=== PATIENT | female | born 1960 | race Caucasian/White ===

== ENCOUNTER 2023-10-02 11:18 | Emergency (ER) | payer BC, SELFPAY ==
[2023-10-02] VITALS (26 sets, daily range): BP systolic 125–175; BP diastolic 63–85; PULSE 76–91; RESP 11–23; TEMP 36.5–37; O2SAT 92–100; BMI 23.8
[2023-10-02 11:34] LABS: Glucometer 124 mg/dL (74-106)
--- NOTE | 2023-10-02 11:35 | ECG_ITS ---
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
--- NOTE | 2023-10-02 11:35 | CT_ITS ---
The [address] [address] Patient Name: CESIA OJEDA MRN: [id number] date: 1960 Sex: F Assigned Patient Location: ER Current Patient Location: ER Accession/Order Number: [id number] Exam Date: 10/02/2023 11:40 Report Date: 10/02/2023 11:59 At the request of: MISAEL BULLOCK Procedure: CT stroke head/brain wo con CT stroke head/brain wo con, 10/02/2023 11:40 AM EST INDICATION: Right foot and hand weakness COMPARISON: No prior CT scan of the head available for comparison at the time of this dictation. TECHNIQUE: Axial CT images of the brain from skull base to vertex, including portions of the face and sinuses, were obtained without contrast. Multiplanar reformatted images were generated and reviewed as needed. FINDINGS: No intracranial mass, hydrocephalus, midline shift or acute hemorrhage. No extra-axial collection. Periventricular and deep white matter microvascular ischemic change. Stout-white matter differentiation is preserved. Remote right temporoparietal, left parietal lobe and bilateral occipital lobe ischemic events. Remote lacunar infarct left head of the caudate nucleus and left cerebellar hemisphere. The paranasal sinuses and mastoid air cells are clear. Orbits are within normal limits. No acute skull fracture. CT/CT stroke head/brain wo con IMPRESSION: 1. No acute intracranial infarct or hemorrhage. 2. Multifocal bilateral remote ischemic events. Electronically authenticated by: ROSALIE AGUILAR Date: 10/02/2023 11:59
--- NOTE | 2023-10-02 11:40 | PC.NURSE ---
pt states at 0400 this morning her dog woke her up and she went to go use the bathroom and noticed her R leg was weak and was dragging it. Pt thought maybe it was muscle related. Pt then began feeling like her R arm was weaker than normal as well. pt able to keep both R arm and leg up in the air when instructed. no slurred speech or facial droop upon assessment.
--- NOTE | 2023-10-02 11:46 | ED_ITS ---
HPI - General Adult General Chief complaint: Weakness Stated complaint: EXTREMITY WEAKNESS/ CVA SYMPTOMS Time Seen by Provider: 10/02/23 11:24 Source: patient and family Mode of arrival: Wheelchair Limitations: physical limitation History of Present Illness HPI narrative: Patient woke at 4am and noted that her right foot and lower leg felt weak . She had some difficulty ambulating as a result. She also noted strange sensation weakness in the right forearm - possibly elbow and wrist. As time went on, she had less weakness in both locations - but the sensory changes in the right forearm and the weakness in the right lower leg including foot and ankle are still present. No fever or chills. No recent fall or injury. No fever or chills. No chest pain, shortness of breath, abdominal pain, flank pain, urinary symptoms, vomiting or diarrhea. She had prior CVA and was [place] [facility] [place] does not recall the year. She is supposed to take aspirin daily but I often forget . Related Data Home Medications Medication Instructions Recorded Confirmed dulaglutide 1.5 mg/0.5 mL 1.5 mg subcut .weekly 10/02/23 10/02/23 subcutaneous pen injector (Trulicity) empagliflozin 25 mg tablet 25 mg PO DAILY 10/02/23 10/02/23 (Jardiance) ezetimibe 10 mg tablet 10 mg PO DAILY 10/02/23 10/02/23 insulin glargine 100 unit/mL (3 25 unit subcut .QHS 10/02/23 10/02/23 mL) subcutaneous pen (Basaglar KwikPen U-100 Insulin) losartan 25 mg tablet 25 mg PO DAILY 10/02/23 10/02/23 metformin 500 mg tablet 1,000 mg PO .QHS 10/02/23 10/02/23 Allergies Allergy/AdvReac Type Severity Reaction Status Date / Time No Known Drug Allergies Allergy Verified 10/02/23 11:26 [facility] Social History Smoking status: Former smoker Exam Narrative Exam Narrative: Nurses notes and vital signs reviewed and patient is not hypoxic. afebrile General: Well-appearing and in no apparent distress. Skin: Warm, dry, no pallor noted. Head: Normocephalic, atraumatic. Neck: Supple, non-tender. Eye: Pupils are equal, round and EOMI. No scleral icterus. Ears, Nose, Mouth, and Throat: Oral mucosa is moist Cardiovascular: Regular Rate and Rhythm without murmur, gallop or rub. Respiratory: No accessory muscle use or respiratory distress. Lungs are clear to auscultation, no wheezing, rales or rhonchi Musculoskeletal: normal ROM, no calf or popliteal tenderness, no lower extremity edema/swelling GI: Abdomen is soft, non-distended. Normal bowel sounds. No tenderness to palpation. No rebound, guarding, or rigidity noted. Neurological: A&O x4. No cranial nerve dysfunction observed. No truncal ataxia. Moves all extremities. Sensation intact. NIH score = 1 (RLE weakness). Psychiatric: Cooperative and interactive. Normal mood and affect. Constitutional Vital Signs, click to edit/add: Last Vital Signs Temp 97.7 F 10/02/23 11:24 Pulse 85 10/02/23 13:30 Resp 20 10/02/23 13:30 BP 125/63 10/02/23 13:30 Pulse Ox 100 10/02/23 13:30 O2 Del Method Room Air 10/02/23 11:24 Course Vital Signs Vital signs: Vital Signs Temperature 97.7 F 10/02/23 11:24 Pulse Rate 84 10/02/23 11:24 Respiratory Rate 16 10/02/23 11:24 Blood Pressure 175/85 H 10/02/23 11:24 Pulse Oximetry 100 10/02/23 11:24 Oxygen Delivery Method Room Air 10/02/23 11:24 Temperature 97.7 F 10/02/23 11:24 Pulse Rate 85 10/02/23 13:30 Respiratory Rate 20 10/02/23 13:30 Blood Pressure 125/63 10/02/23 13:30 Pulse Oximetry 100 10/02/23 13:30 Oxygen Delivery Method Room Air 10/02/23 11:24 Medical Decision Making MDM Narrative Medical decision making narrative: Patient was sent for CT of the brain without contrast per stroke protocol. Patient was placed on 3d artist and EKG obtained. Blood drawn and sent for evaluation. She is outside of the window for any tPA or other acute intervention. Last known well was approximately 10 PM last night before she went to sleep. Unremarkable labs. Non contrast CT as well as CT angio head and neck without worrisome findings. She continues to have right foot weakness. We gave her aspirin and Plavix in the ED. Talked with patient about her symptoms - she is agreeable to go [place] [facility] [place] including [place]y. I spoke with Dr Dumont, the hospitalist at [facility] [place] he accepts the patient's transfer to their facility and admission to his service. Call placed to arrange transport by ambulance once a bed assignment was given. Medical Records Medical records reviewed: Yes I reviewed the patient's medical records Lab Data Lab results reviewed: Yes I reviewed the patient's lab results Labs: Lab Results 10/02/23 10/02/23 Range/Units 11:33 11:34 WBC 8.0 (4.0-11.0) 10^3/uL RBC 5.02 (4.20-5.40) 10^6/uL Hgb 13.7 (12.0-16.0) g/dL Hct 43.5 (36.0-48.0) % MCV 86.7 (81.0-99.0) fL MCH 27.3 (26.7-34.0) pg MCHC 31.5 (29.9-35.2) g/dL RDW 13.3 (11.0-15.0) % Plt Count 184 (150-450) 10^3/uL MPV 9.5 (9.5-13.5) fL Neut % (Auto) 64.3 (43.0-75.0) % Lymph % (Auto) 28.2 (20.5-60.0) % Alcorn % (Auto) 5.8 (1.7-12.0) % Eos % (Auto) 1.1 (0.9-7.0) % Baso % (Auto) 0.3 (0.2-2.0) % Neut # (Auto) 5.2 (1.4-6.5) 10^3/uL Lymph # (Auto) 2.3 (1.2-3.8) 10^3/uL Alcorn # (Auto) 0.5 (0.3-0.8) 10^3/uL Eos # (Auto) 0.1 (0.0-0.7) 10^3/uL Baso # (Auto) 0.0 (0.0-0.1) 10^3/uL Abs Immat Gran (auto) 0.02 (0.00-0.03) 10^3/uL Imm/Tot Granulo (auto) 0.3 (0.0-0.5) % PT 10.1 (9.0-11.6) sec INR 0.95 APTT 26.8 (22.3-36.2) sec Sodium 143 (136-145) mmol/L Potassium 4.3 (3.5-5.1) mmol/L Chloride 108 H (98-107) mmol/L Carbon Dioxide 26.5 (21.0-32.0) mmol/L Anion Gap 12.8 BUN 31.0 H (7.0-18.0) mg/dL Creatinine 1.08 H (0.55-1.02) mg/dL Est GFR ( Amer) >60 (>=60) Est GFR (Non-Af Amer) 51 L (>=60) BUN/Creatinine Ratio 28.7 Glucose 129 H (74-106) mg/dL Calcium 9.2 (8.5-10.1) mg/dL Total Bilirubin 0.7 (0.2-1.0) mg/dL AST 20 (15-37) U/L ALT 26 (14-59) U/L Alkaline Phosphatase 60 (46-116) U/L Total Protein 7.6 (6.4-8.2) g/dL Albumin 4.1 (3.4-5.0) g/dL Globulin 3.5 g/dL Albumin/Globulin Ratio 1.2 POC Glucose 124 H (74-106) mg/dL Imaging Data CT scan - head: Radiologist's impression: ITS Impressions Brain CT 10/02/23 11:35 IMPRESSION: 1. No acute intracranial infarct or hemorrhage. 2. Multifocal bilateral remote ischemic events. Electronically authenticated by: ROSALIE AGUILAR Date: 10/02/2023 11:59 Head CTA 10/02/23 11:54 IMPRESSION: 1. Normal CTA of the brain. 2. Normal CTA of the neck. Electronically authenticated by: DAWNA REYES Date: 10/02/2023 12:55 Neck CTA 10/02/23 11:54 IMPRESSION: 1. Normal CTA of the brain. 2. Normal CTA of the neck. Electronically authenticated by: DAWNA REYES Date: 10/02/2023 12:55 ECG Data Attestation: I personally reviewed and interpreted this ECG as follows: Interpretation: EKG interpretation: Emergency Department physician interpretation. Normal sinus rhythm at 89bpm. Normal axis, normal intervals and no ST segment elevation or depression. Normal EKG Discharge Plan Discharge Chief Complaint: Weakness Clinical Impression: Paresthesia of right upper and lower extremity, Acute CVA (cerebrovascular accident), Acute right-sided weakness Patient Disposition: [facility] Time of Disposition Decision: 13:28 Discharge Location: [facility]
[2023-10-02 11:47] LABS: Basophils Percent Auto 0.3 % (0.2-2.0); Eosinophils Absolute Auto 0.1 10^3/uL (0.0-0.7); Eosinophils Percent Auto 1.1 % (0.9-7.0); Hematocrit 43.5 % (36.0-48.0); Hemoglobin 13.7 g/dL (12.0-16.0); Immature Granulocytes Abs Auto 0.02 10^3/uL (0.00-0.03); Immature Granulocytes Pct Auto 0.3 % (0.0-0.5); Lymphocytes Absolute Auto 2.3 10^3/uL (1.2-3.8); Lymphocytes Percent Auto 28.2 % (20.5-60.0); Mean Corpuscular HGB Conc 31.5 g/dL (29.9-35.2); Mean Corpuscular Hemoglobin 27.3 pg (26.7-34.0); Mean Corpuscular Volume 86.7 fL (81.0-99.0); Mean Platelet Volume 9.5 fL (9.5-13.5); Monocytes Absolute Auto 0.5 10^3/uL (0.3-0.8); Monocytes Percent Auto 5.8 % (1.7-12.0); Neutrophils Absolute Auto 5.2 10^3/uL (1.4-6.5); Neutrophils Percent Auto 64.3 % (43.0-75.0); Platelet Count 184 10^3/uL (150-450); Red Blood Count 5.02 10^6/uL (4.20-5.40); Red Cell Distribution Width 13.3 % (11.0-15.0)
[2023-10-02] MEDS: 0.9 % SODIUM CHLORIDE 1,000 ML 999 ML IV (11:48)
--- NOTE | 2023-10-02 11:54 | CT_ITS ---
The [address] [address] Patient Name: CESIA OJEDA MRN: [facility]:[id number] date: 1960 Sex: F Assigned Patient Location: ED.MAIN Current Patient Location: ED.MAIN Accession/Order Number: [id number] Exam Date: 10/02/2023 12:00 Report Date: 10/02/2023 15:04 At the request of: MISAEL BULLOCK Procedure: CT angio neck CTA HEAD AND NECK WITH CONTRAST, 10/02/2023. HISTORY: Right leg and right arm weakness. COMPARISON: CT head, 10/02/2023. TECHNIQUE: Postcontrast axial CTA images obtained through the head and neck. Reconstructed MIP images obtained in the axial, sagittal, and coronal planes. Carotid stenosis measured according to NASCET criteria. Dose reduction techniques were achieved by using automated exposure control and/or adjustment of mA and/or kV according to patient size and/or use of iterative reconstruction technique. FINDINGS: CTA BRAIN: Distal internal carotid arteries are normal in caliber. The anterior cerebral arteries are normal in caliber. The middle cerebral arteries are normal. Intradural segments of the vertebral arteries are normal. Basilar artery normal. Cerebellar arteries normal. Posterior cerebral arteries are normal. No aneurysm. No vascular malformation. CTA NECK: No stenosis of the common carotid arteries. No stenosis at the carotid bifurcations. No stenosis of the internal carotid arteries. No vertebral artery stenosis. No acute dissection. No neck masses. No lymphadenopathy in the neck. Lung apices clear. No suspicious osseous lesions. CT/CT angio neck IMPRESSION: 1. Normal CTA of the brain. 2. Normal CTA of the neck. Electronically authenticated by: DAWNA REYES Date: 10/02/2023 15:04
--- NOTE | 2023-10-02 11:54 | CT_ITS ---
The [address] [address] Patient Name: CESIA OJEDA MRN: [facility]:[id number] date: 1960 Sex: F Assigned Patient Location: ED.MAIN Current Patient Location: ED.MAIN Accession/Order Number: [id number] Exam Date: 10/02/2023 12:00 Report Date: 10/02/2023 15:04 At the request of: MISAEL BULLOCK Procedure: CT angio head CTA HEAD AND NECK WITH CONTRAST, 10/02/2023. HISTORY: Right leg and right arm weakness. COMPARISON: CT head, 10/02/2023. TECHNIQUE: Postcontrast axial CTA images obtained through the head and neck. Reconstructed MIP images obtained in the axial, sagittal, and coronal planes. Carotid stenosis measured according to NASCET criteria. Dose reduction techniques were achieved by using automated exposure control and/or adjustment of mA and/or kV according to patient size and/or use of iterative reconstruction technique. FINDINGS: CTA BRAIN: Distal internal carotid arteries are normal in caliber. The anterior cerebral arteries are normal in caliber. The middle cerebral arteries are normal. Intradural segments of the vertebral arteries are normal. Basilar artery normal. Cerebellar arteries normal. Posterior cerebral arteries are normal. No aneurysm. No vascular malformation. CTA NECK: No stenosis of the common carotid arteries. No stenosis at the carotid bifurcations. No stenosis of the internal carotid arteries. No vertebral artery stenosis. No acute dissection. No neck masses. No lymphadenopathy in the neck. Lung apices clear. No suspicious osseous lesions. CT/CT angio head IMPRESSION: 1. Normal CTA of the brain. 2. Normal CTA of the neck. Electronically authenticated by: DAWNA REYES Date: 10/02/2023 15:04
[2023-10-02 12:11] LABS: Alanine Aminotransferase 26 U/L (14-59); Albumin Globulin Ratio 1.2; Albumin Level 4.1 g/dL (3.4-5.0); Alkaline Phosphatase 60 U/L (46-116); Anion Gap 12.8; Aspartate Amino Transferase 20 U/L (15-37); BUN Creatinine Ratio 28.7; Bilirubin Total 0.7 mg/dL (0.2-1.0); Calcium 9.2 mg/dL (8.5-10.1); Carbon Dioxide 26.5 mmol/L (21.0-32.0); Chloride 108 mmol/L (98-107); Estimated GFR (African America >60 (>=60); Estimated GFR (Non-African Ame 51 (>=60); Globulin 3.5 g/dL; Glucose 129 mg/dL (74-106); Potassium 4.3 mmol/L (3.5-5.1); Sodium 143 mmol/L (136-145); Total Protein 7.6 g/dL (6.4-8.2)
[2023-10-02 12:16] LABS: INR 0.95; Partial Thromboplastin Time 26.8 sec (22.3-36.2); Prothrombin Time 10.1 sec (9.0-11.6)
[2023-10-02] MEDS: ASPIRIN 81 MG TAB.CHEW PO (14:28)
[2023-10-02] MEDS: CLOPIDOGREL BISULFATE 75 MG TABLET 300 MG PO (14:28)
--- NOTE | 2023-10-02 19:26 | PC.NURSE ---
Left eye is crossed that is normal for her.
== END 2023-10-02 21:00 | disposition short-term general hospital (02) ==
PROVIDERS: Emergency Provider Emergency Medicine; Family Provider Family Medicine; PCP Internal Medicine
DX: I62.9 Nontraumatic intracranial hemorrhage, unspecified (principal); G81.91 Hemiplegia, unspecified affecting right dominant side; R20.2 Paresthesia of skin; Z86.73 Personal history of transient ischemic attack (TIA), and cerebral infarction without residual deficits; Z79.4 Long term (current) use of insulin; Z79.84 Long term (current) use of oral hypoglycemic drugs; Z87.891 Personal history of nicotine dependence
CPT/HCPCS: 36415; 70450; 70496; 70498; 80053; 82948; 85025; 85610; 85730; 93005; 99285; Q9967